=== PATIENT | male | born 1985 | race Caucasian/White ===

== ENCOUNTER 2016-07-03 04:30 | Emergency (ER) ==
[2016-07-03 04:37] VITALS: BP 146/98
--- NOTE | 2016-07-03 04:44 | PROVIDER DOCUMENTATION ---
HPI-Rash/Wound/ReCheck - General Chief Complaint: Abscess Stated Complaint: ABCESS ON BOTTOM Time Seen by Provider: 07/03/16 04:44 Source: patient Unable to obtain history due to:: urgency Allergies/Adverse Reactions: Allergies Allergy/AdvReac Type Severity Reaction Status Date / Time ketorolac tromethamine * Allergy ANAPHYLAXIS Verified 07/03/16 04:37 [From Toradol] naloxone HCl * AdvReac Severe SYNCOPE Verified 07/03/16 04:37 [From Suboxone] Home Medications: Home Medication List Medication Instructions Recorded Confirmed Last Taken Type Amitriptyline HCl 75 mg PO DIRECTED 12/18/15 07/03/16 Unknown History Gabapentin 600 mg PO TID 12/18/15 07/03/16 Unknown History Clindamycin [Cleocin] 300 mg PO Q6HR #40 capsule 07/03/16 Unknown Rx Sulfamethoxazole/Trimethoprim 2 each PO BID #40 tablet 07/03/16 Unknown Rx [Bactrim Ds Tablet] - History of Present Illness-Dermatology Location: reports: none Quality: reports: itchy Severity: reports: mild Onset/Duration: reports: abrupt Timing: reports: still present Context/Associated Symptoms: reports: abscess Identifiable cause?: Yes Exposure: reports: unknown cause Locality of Occurance: Home Similar Symptoms Previously?: Yes Recently seen or treated by another doctor?: Yes Review of Systems - Adult - REVIEW OF SYSTEMS - ADULT Constitutional: reports: no symptoms reported Eyes: reports: no symptoms reported Ears, Nose, Mouth & Throat: reports: no symptoms reported Cardiovascular: reports: no symptoms reported Respiratory: reports: no symptoms reported Gastrointestinal: reports: no symptoms reported Genitourinary: reports: no symptoms reported Musculoskeletal: reports: no symptoms reported Integumentary: reports: no symptoms reported Neurological: reports: no symptoms reported Psychiatric: reports: no symptoms reported Endocrine: reports: no symptoms reported Hematologic/Lymphatic: reports: no symptoms reported Allergic/Immunologic: reports: no symptoms reported All Other Systems: Reviewed and Negative Past History - Adult - PAST MEDICAL HISTORY-ADULT Review of Records: reports: Old Records Reviewed, Nursing Assessment Review, Medications Reviewed, Social history reviewed & non-contributory. 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 Psychiatric: reports: bipolar, schizophrenia Endocrine/Immune: reports: denies history Other Conditions: reports: denies history - PRIOR SURGERIES/PROCEDURES Surgical/Procedure History: reports: reviewed, not pertinent - IMMUNIZATION STATUS Childhood Immunizations: See Nurse Assessment Flu Vaccine: See Nurse Assessment - FAMILY HISTORY Family History: reviewed, not pertinent Physical Exam-General - PHYSICAL EXAM-ADULT Initial Vital Signs Reviewed: Yes - CONSTITUTIONAL General Appearance: appears well - EYES Eyes: PERRL/EOMI - HEAD, EARS, NOSE, MOUTH & THROAT HENMT: normocephalic/atraumatic - NECK Neck: non-tender - RESPIRATORY Respiratory: chest non-tender - CARDIOVASCULAR Cardiovascular: normal peripheral pulses - GASTROINTESTINAL (ABDOMEN) Abdominal Exam: no organomegaly - GENITOURINARY Rectal Exam: hemorrhoids, tenderness - LYMPHATIC Lymphatic: no adenopathy - MUSCULOSKELETAL Back Exam: normal inspection Extremity: normal range of motion Departure - Departure Time of Disposition Order: 05:10 DIAGNOSIS: Abscess Disposition: HOME 01 Certified Medical Emergency: Emergent Condition: Stable Prescriptions: Sulfamethoxazole/Trimethoprim [Bactrim Ds Tablet] 2 each PO BID #40 tablet Clindamycin [Cleocin] 300 mg PO Q6HR #40 capsule Referrals: None,PCP [Primary Care Provider] - Forms: Return to School/Parent Work Instructions: Abscess, Clindamycin capsules, Sulfamethoxazole; Trimethoprim, SMX-TMP tablets
[2016-07-03] MEDS ORDERED: DECADRON IM ONE (04:47)
[2016-07-03] MEDS ORDERED: SEPTRA DS PO ONE (04:48)
[2016-07-03] MEDS ORDERED: CLEOCIN PO ONE (04:48)
[2016-07-03] MEDS ORDERED: ORAPRED LIQUID PO ONE (05:07)
[2016-07-03] MEDS ORDERED: AMOXIL LIQUID PO ONE (05:08)
== END 2016-07-03 05:12 | disposition home or self-care (01) ==
LOC: P.ED 04:30
DX: L02.31 Cutaneous abscess of buttock (principal); L29.9 Pruritus, unspecified; K64.9 Unspecified hemorrhoids; G89.29 Other chronic pain; F31.9 Bipolar disorder, unspecified; F20.9 Schizophrenia, unspecified; Z79.899 Other long term (current) drug therapy
CPT/HCPCS: J1100